=== PATIENT | male | born 1995 | race Hispanic/Latino ===

== ENCOUNTER 2023-11-06 19:59 | Emergency (ER) | payer BC ==
[~2023-11-06] VITALS: Ht 188 cm; Wt 95.3 kg
[2023-11-06] MEDS: IBUPROFEN 800 MG TAB PO ONE (20:12)
[2023-11-06] MEDS ORDERED: IBUP-2077 PO (20:50)
[2023-11-06 21:45] VITALS: BP 118/74; PULSE 78; RESP 18; O2SAT 99
== END 2023-11-06 21:57 | disposition home or self-care (01) ==
LOC: EDH 19:59
DX: S93.491A Sprain of other ligament of right ankle, initial encounter (principal); X50.1XXA Overexertion from prolonged static or awkward postures, initial encounter; Y93.01 Activity, walking, marching and hiking; Y92.89 Other specified places as the place of occurrence of the external cause; Y99.8 Other external cause status
CPT/HCPCS: 29515; 73610